=== PATIENT | male | born 1980 | race African-American/Black ===

== ENCOUNTER 2017-06-20 14:09 | Emergency (ER) | payer OTHER, MEDICAID ==
[~2017-06-20] VITALS: Ht 182.9 cm; Wt 86.2 kg
[~2017-06-20 14:09] MED LIST: ACETAMINOPHEN-1 EAC1 PO; ATIVAN0.5 MG; ATIVAN1 MG PO; BENTYL 10 MG CA10 M1 PO; CELEXA 10 MG TA10 M1; CELEXA40 MG; CLONAZEPAM 0.50.5 M1 PO; CLONAZEPAM 1 MG1 M1 PO; FLEXERIL PO; IBUPROFEN 600600 M1 PO; KLONOPIN1 MG NG; KLONOPIN1 MG PO; NAPROSYN500 MG PO; NEXIUM40 MG PO; NORCO 5-325 TA1 EAC1 PO; NORCO 5-325 TA1 EACH PO; NORFLEX100 MG PO; ONDANSETRON HCL4 M2 PO; PEPCID40 MG PO; PHENERGAN 25 MG25 M1 PO; PHENERGAN 25 MG25 M1 RECTAL; PHENERGAN 25 MG25 MG PO; PHENERGAN25 MG RE; PHENERGAN50 MG RC; POTASSIUM20 PO; PRILOSEC40 MG PO; PROMETHAZI6.25 MG/5 PO; PROMETHAZINE12.5 M1 PO; PROMS25 WY RECTAL; REGLAN 10 MG TA10 M1 PO; ROBAXIN500 MG PO; SEROQUEL XR400 M1 PO; SEROQUEL XR400 MG PO; SEROQUEL200 MG PO; SEROQUEL300 MG PO; SEROQUEL400 MG PO; XANAX 0.25 MG0.25 MG PO; XANAX 0.5 MG0.5 M1 PO; XANAX 1 MG TABLE1 MG PO; ZANTAC 150MG T150 M1 PO; ZOFRAN ODT4 MG PO; ZOFRAN4 MG PO; [UNRECOGNIZED DRUG - OTHER]
[2017-06-20] MEDS ORDERED: ONDANSETRON HCL4 M2 PO (14:25)
[2017-06-20 15:42] LABS: URINE BILIRUBIN NEGATIVE (Negative); URINE BLOOD NEGATIVE (Negative); URINE CLARITY CLEAR; URINE COLOR YELLOW; URINE GLUCOSE-RANDOM NEGATIVE (Negative); URINE KETONES NEGATIVE (Negative); URINE LEUKOCYTES-REFLEX NEGATIVE (Negative); URINE NITRITE-REFLEX NEGATIVE (Negative); URINE PROTEIN NEGATIVE (Negative)
[2017-06-20 16:03] LABS: ABSOLUTE LYMPHOCYTES 0.9 thou/uL (0.8-5.3); ABSOLUTE MONOCYTES 0.4 thou/uL (0.0-1.2); ABSOLUTE NEUTROPHILS 6.8 thou/uL (1.6-8.1); BASOPHILS 0.6 %; EOSINOPHILS 0.3 %; HEMATOCRIT 40.3 % (42.0-52.0); HEMOGLOBIN 13.1 gm/dL (14.0-18.0); LYMPHOCYTES 10.9 %; MCH 28.6 pg (26.0-34.0); MCHC 32.4 g/dL (28.0-37.0); MCV 88.5 fL (80.0-100.0); MONOCYTES 4.8 %; MPV 7.9 fl. (7.2-11.1); NUCLEATED RBCS 0 /100WBC; PLATELET COUNT* 186 thou/uL (150-400); POLYS 83.4 %; RBC 4.56 mil/uL (4.50-6.00); RDW-CV 14.3 % (10.5-14.5); WBC 8.2 thou/uL (4.0-11.0)
[2017-06-20 16:12] LABS: POTASSIUM 4.6 mmol/L (3.5-5.1)
[2017-06-20 16:16] LABS: ALBUMIN 4.3 g/dL (3.4-5.0); TOTAL BILIRUBIN 0.5 mg/dL (<0.1-1.0); TOTAL PROTEIN 8.2 g/dL (6.4-8.2)
[2017-06-20 16:41] VITALS: BP 135/86
== END 2017-06-20 16:41 | disposition home or self-care (01) ==
LOC: M.ERS 14:09
PROVIDERS: Nurse Practitioner Family
DX: R10.12 Left upper quadrant pain (principal); F41.9 Anxiety disorder, unspecified; F31.9 Bipolar disorder, unspecified; F43.10 Post-traumatic stress disorder, unspecified; I10 Essential (primary) hypertension

== ENCOUNTER 2017-06-23 13:09 | Emergency (ER) | payer OTHER, MEDICAID ==
[~2017-06-23] VITALS: Ht 182.9 cm; Wt 86.2 kg
[2017-06-23 13:28] VITALS: BP 144/95
[2017-06-23] MEDS ORDERED: ZOFRAN ODT4 MG SUBLING (13:49)
== END 2017-06-23 13:58 | disposition home or self-care (01) ==
LOC: M.ERS 13:09
DX: R11.2 Nausea with vomiting, unspecified (principal); F41.9 Anxiety disorder, unspecified; F43.10 Post-traumatic stress disorder, unspecified; F31.9 Bipolar disorder, unspecified; I10 Essential (primary) hypertension

== ENCOUNTER 2017-09-12 16:44 | Emergency (ER) | payer OTHER, MEDICAID ==
[~2017-09-12] VITALS: Ht 182.9 cm; Wt 88.5 kg
[~2017-09-12 16:44] MED LIST changes: +ZOFRAN ODT4 MG SUBLING
[2017-09-12 19:31] LABS: HEMATOCRIT 44.5 % (42.0-52.0); HEMOGLOBIN 14.6 gm/dL (14.0-18.0); MCH 28.7 pg (26.0-34.0); MCHC 32.8 g/dL (28.0-37.0); MCV 87.4 fL (80.0-100.0); MPV 8.3 fl. (7.2-11.1); NUCLEATED RBCS 0 /100WBC; PLATELET COUNT* 255 thou/uL (150-400); RBC 5.08 mil/uL (4.50-6.00); WBC 14.4 thou/uL (4.0-11.0)
[2017-09-12 19:43] LABS: CALCIUM 10.5 mg/dL (8.5-10.1); CREATININE 1.3 mg/dL (0.6-1.3); POTASSIUM 3.7 mmol/L (3.5-5.1)
[2017-09-12 19:48] LABS: ALBUMIN 5.2 g/dL (3.4-5.0); TOTAL PROTEIN 9.9 g/dL (6.4-8.2)
[2017-09-12 19:56] LABS: ABSOLUTE LYMPHOCYTES 0.7 thou/uL (0.8-5.3); ABSOLUTE MONOCYTES 0.4 thou/uL (0.0-1.2); ABSOLUTE NEUTROPHILS 13.2 thou/uL (1.6-8.1)
[2017-09-12 19:57] LABS: PLATELET ESTIMATE ADEQUATE
[2017-09-12] MEDS ORDERED: ZOFRAN4 MG PO (20:37)
[2017-09-12 21:43] VITALS: BP 114/66
== END 2017-09-12 21:43 | disposition home or self-care (01) ==
LOC: M.ERS 16:44
PROVIDERS: Nurse Practitioner Family
DX: R11.2 Nausea with vomiting, unspecified (principal); I10 Essential (primary) hypertension; F31.9 Bipolar disorder, unspecified

== ENCOUNTER 2018-01-01 15:09 | Emergency (ER) | payer OTHER, MEDICAID ==
[~2018-01-01] VITALS: Ht 182.9 cm; Wt 86.2 kg
[2018-01-01 15:17] VITALS: BP 134/84
[2018-01-01] MEDS ORDERED: QUETIAPINE FUM100 MG PO ×2 (15:21)
[2018-01-01] MEDS ORDERED: IBUPROFEN 800800 M1 PO (16:09)
== END 2018-01-01 16:19 | disposition home or self-care (01) ==
LOC: M.ERS 15:09
DX: S40.011A Contusion of right shoulder, initial encounter (principal); F41.0 Panic disorder [episodic paroxysmal anxiety]; F31.9 Bipolar disorder, unspecified; I10 Essential (primary) hypertension; V89.2XXA Person injured in unspecified motor-vehicle accident, traffic, initial encounter; Y93.89 Activity, other specified; Y92.89 Other specified places as the place of occurrence of the external cause; Y99.8 Other external cause status

== ENCOUNTER 2019-05-05 20:11 | Emergency (ER) | payer OTHER, MEDICAID ==
[~2019-05-05] VITALS: Ht 182.9 cm; Wt 90.7 kg
[~2019-05-05 20:11] MED LIST changes: +IBUPROFEN 800800 M1 PO; +QUETIAPINE FUM100 MG PO
[2019-05-05 20:18] VITALS: BP 143/98
== END 2019-05-05 20:43 | disposition home or self-care (01) ==
LOC: M.ERS 20:11
DX: K02.9 Dental caries, unspecified (principal); I10 Essential (primary) hypertension; F41.0 Panic disorder [episodic paroxysmal anxiety]; F31.9 Bipolar disorder, unspecified

== ENCOUNTER 2019-06-22 11:01 | Emergency (ER) | payer OTHER, MEDICAID ==
[~2019-06-22] VITALS: Ht 182.9 cm; Wt 90.7 kg
--- NOTE | ~2019-06-22 | EKG ---
[place] [address] ELECTROCARDIOGRAM REPORT Name: ROSALIA WILSON Room: [facility]#: [id number] Admission: 06/22/19 Attend Phys: Discharge: Date of : 80 Date of Service: 06/22/19 1405 Report #: [id number] THIS REPORT FOR: cc: FAM - No family physician/PCP FAM - No family physician/PCP Dong Umana MD ~ THIS REPORT FOR: //name// [facility] ED Test Date: 2019-06-22 Test Time: 14:05:25 Pat Name: ROSALIA BRADFORD Department: Room: Gender: M Title Specialist: JESS : 1980 Requested By: Fredy Jarrett Order Number: [id number] MD: Measurements Intervals [place] Rate: 57 P: -26 CO: 155 QRS: 39 QRSD: 97 T: 47 QT: 453 QTc: 441 Interpretive Statements Sinus rhythm Probable left ventricular hypertrophy ST elev, probable normal early repol pattern No previous ECG available for comparison [email or web address] By: 1405 1405 Epiphany Epiphany, [place] /DAWNA
[2019-06-22 12:43] LABS: HEMATOCRIT 39.7 % (42.0-52.0); HEMOGLOBIN 12.7 gm/dL (14.0-18.0); MCH 28.1 pg (26.0-34.0); MCV 87.9 fL (80.0-100.0); MPV 8.2 fl. (7.2-11.1); NUCLEATED RBCS 0 /100WBC; PLATELET COUNT* 237 thou/uL (150-400); RBC 4.52 mil/uL (4.50-6.00); RDW-CV 14.4 % (10.5-14.5); WBC 13.7 thou/uL (4.0-11.0)
[2019-06-22 12:52] LABS: CALCIUM 9.4 mg/dL (8.5-10.1); CREATININE 1.1 mg/dL (0.6-1.3); POTASSIUM 4.5 mmol/L (3.5-5.1)
[2019-06-22 13:01] LABS: ALBUMIN 4.3 g/dL (3.4-5.0); TOTAL BILIRUBIN 0.3 mg/dL (<0.1-1.0); TOTAL PROTEIN 8.2 g/dL (6.4-8.2)
[2019-06-22 13:02] LABS: ABSOLUTE LYMPHOCYTES 0.3 thou/uL (0.8-5.3); ABSOLUTE MONOCYTES 0.5 thou/uL (0.0-1.2); ABSOLUTE NEUTROPHILS 12.9 thou/uL (1.6-8.1); PLATELET ESTIMATE ADEQUATE
[2019-06-22] MEDS ORDERED: NORCO 5-325 TA1 EAC1 PO (15:02)
[2019-06-22] MEDS ORDERED: ZOFRAN ODT4 MG DISSOLVE (15:02)
[2019-06-22 15:12] VITALS: BP 129/60
== END 2019-06-22 15:15 | disposition home or self-care (01) ==
LOC: M.ERS 11:01
PROVIDERS: Emergency Medicine Emergency Medical Services
DX: K52.9 Noninfective gastroenteritis and colitis, unspecified (principal); I10 Essential (primary) hypertension

== ENCOUNTER 2019-06-24 05:25 | Emergency (ER) | payer OTHER, MEDICAID ==
[~2019-06-24] VITALS: Ht 182.9 cm; Wt 90.7 kg
--- NOTE | ~2019-06-24 | EKG ---
[place] [address] ELECTROCARDIOGRAM REPORT Name: ROSALIA WILSON Room: [facility]#: [id number] Admission: 06/24/19 Attend Phys: Discharge: 06/24/19 Date of : 80 Date of Service: 06/24/19 0536 Report #: [id number] THIS REPORT FOR: cc: LUCIEN - Sarah family physician/PCP FAM - No family physician/PCP Dong Umana MD ~ THIS REPORT FOR: //name// [facility] ED Test Date: 2019-06-24 Test Time: 05:36:04 Pat Name: ROSALIA BRADFORD Department: Room: Gender: M Closing Manager: : 1980 Requested By: Monique Pratt Order Number: [id number] MD: Measurements Intervals [place] Rate: 63 P: 0 GA: 105 QRS: 68 QRSD: 85 T: -42 QT: 424 QTc: 435 Interpretive Statements Sinus rhythm Atrial premature complex Short [place] interval Left ventricular hypertrophy Repol abnrm suggests ischemia, inferior leads No previous ECG available for comparison [email or web address] By: Epiphany Epiphany, /DAWNA
[~2019-06-24 05:25] MED LIST changes: +ZOFRAN ODT4 MG DISSOLVE
[2019-06-24 06:20] LABS: ABSOLUTE LYMPHOCYTES 1.1 thou/uL (0.8-5.3); ABSOLUTE MONOCYTES 0.6 thou/uL (0.0-1.2); ABSOLUTE NEUTROPHILS 6.3 thou/uL (1.6-8.1); BASOPHILS 0.6 %; EOSINOPHILS 0.2 %; HEMATOCRIT 39.6 % (42.0-52.0); HEMOGLOBIN 13.5 gm/dL (14.0-18.0); LYMPHOCYTES 13.8 %; MCH 29.2 pg (26.0-34.0); MCHC 34.2 g/dL (28.0-37.0); MCV 85.3 fL (80.0-100.0); MONOCYTES 7.3 %; MPV 8.2 fl. (7.2-11.1); NUCLEATED RBCS 0 /100WBC; PLATELET COUNT* 244 thou/uL (150-400); POLYS 78.1 %; RBC 4.64 mil/uL (4.50-6.00); RDW-CV 14.2 % (10.5-14.5)
[2019-06-24 06:59] LABS: CALCIUM 9.7 mg/dL (8.5-10.1); CREATININE 1.3 mg/dL (0.6-1.3); POTASSIUM 3.5 mmol/L (3.5-5.1)
[2019-06-24 07:03] LABS: ALBUMIN 4.7 g/dL (3.4-5.0); TOTAL BILIRUBIN 0.7 mg/dL (<0.1-1.0); TOTAL PROTEIN 8.5 g/dL (6.4-8.2)
[2019-06-24 07:44] VITALS: BP 110/70
== END 2019-06-24 07:44 | disposition still patient (30) ==
LOC: M.ERS 05:25
PROVIDERS: Emergency Medicine
DX: R10.13 Epigastric pain (principal); R10.32 Left lower quadrant pain; R10.31 Right lower quadrant pain; R11.2 Nausea with vomiting, unspecified; R19.7 Diarrhea, unspecified; I10 Essential (primary) hypertension

== ENCOUNTER 2019-06-26 13:39 | Emergency (ER) | payer OTHER, MEDICAID ==
[~2019-06-26] VITALS: Ht 182.9 cm; Wt 90.7 kg
[2019-06-26 14:00] VITALS: BP 153/90
== END 2019-06-26 14:14 | disposition home or self-care (01) ==
LOC: M.ERS 13:39
DX: R11.15 Cyclical vomiting syndrome unrelated to migraine (principal); I10 Essential (primary) hypertension

== ENCOUNTER 2020-11-22 03:43 | Emergency (ER) | payer OTHER, MEDICAID ==
[~2020-11-22] VITALS: Ht 182.9 cm; Wt 93.0 kg
[2020-11-22 04:39] LABS: CALCIUM 9.2 mg/dL (8.5-10.1); CREATININE 1.3 mg/dL (0.6-1.3)
[2020-11-22 04:44] LABS: ALBUMIN 4.3 g/dL (3.4-5.0); TOTAL BILIRUBIN 0.5 mg/dL (<0.1-1.0); TOTAL PROTEIN 8.7 g/dL (6.4-8.2)
[2020-11-22] MEDS ORDERED: REGLAN 10 MG TA10 MG PO (05:52)
[2020-11-22 06:11] VITALS: BP 119/59
== END 2020-11-22 06:11 | disposition home or self-care (01) ==
LOC: M.ERS 03:43
PROVIDERS: Emergency Medicine
DX: R11.2 Nausea with vomiting, unspecified (principal); R10.11 Right upper quadrant pain; R10.13 Epigastric pain; R10.32 Left lower quadrant pain; R10.31 Right lower quadrant pain; I10 Essential (primary) hypertension

== ENCOUNTER 2020-11-23 00:36 | Emergency (ER) | payer OTHER, MEDICAID ==
[~2020-11-23] VITALS: Ht 182.9 cm; Wt 93.0 kg
[~2020-11-23 00:36] MED LIST changes: +REGLAN 10 MG TA10 MG PO
[2020-11-23 04:17] LABS: ABSOLUTE LYMPHOCYTES 0.6 thou/uL (0.8-5.3); ABSOLUTE MONOCYTES 0.6 thou/uL (0.0-1.2); ABSOLUTE NEUTROPHILS 6.1 thou/uL (1.6-8.1); BASOPHILS 0.1 %; HEMATOCRIT 37.7 % (42.0-52.0); HEMOGLOBIN 12.7 gm/dL (14.0-18.0); LYMPHOCYTES 8.2 %; MCH 28.5 pg (26.0-34.0); MCHC 33.6 g/dL (28.0-37.0); MCV 84.9 fL (80.0-100.0); MONOCYTES 8.4 %; MPV 8.2 fl. (7.2-11.1); NUCLEATED RBCS 0 /100WBC; PLATELET COUNT* 210 thou/uL (150-400); POLYS 83.3 %; RBC 4.44 mil/uL (4.50-6.00); RDW-CV 14.6 % (10.5-14.5); WBC 7.3 thou/uL (4.0-11.0)
[2020-11-23 04:29] LABS: CALCIUM 8.8 mg/dL (8.5-10.1); POTASSIUM 3.2 mmol/L (3.5-5.1)
[2020-11-23 05:40] VITALS: BP 114/73
--- NOTE | 2020-11-24 11:43 | EKG ---
[place] [address] ELECTROCARDIOGRAM REPORT Name: ROSALIA WILSON SR Room: [facility]#: [id number] Admission: 11/23/20 Attend Phys: Discharge: 11/23/20 Date of : 80 Date of Service: 11/23/20 0042 Report #: [id number] THIS REPORT FOR: //name// [facility] ED Test Date: 2020-11-23 Test Time: 00:42:02 Pat Name: ROSALIA BRADFORD Department: Room: Gender: M Lending Manager: EMIR : 1980 Requested By: Monique Pratt Order Number: [id number] MD: Rhett Villalta Measurements Intervals [place] Rate: 61 P: 84 [place]: 111 QRS: 69 QRSD: 86 T: -36 QT: 424 QTc: 427 Interpretive Statements Sinus rhythm Borderline short [place] interval Left ventricular hypertrophy Nonspecific T abnormalities, inferior leads Anterior ST elevation, probably due to LVH Compared to ECG 06/24/2019 05:36:04 ST (T wave) deviation now present Accelerated junctional rhythm no longer present Electronically Signed On 11-24-2020 11:42:54 CDT by Rhett Villalta [email or web address] <ELECTRONICALLY SIGNED> By: Rhett Villalta MD, [facility] 11/24/20 1142 Rhett Villalta MD, [facility] /EPI
== END 2020-11-23 05:40 | disposition home or self-care (01) ==
LOC: M.ERS 00:36
PROVIDERS: Emergency Medicine
DX: R11.15 Cyclical vomiting syndrome unrelated to migraine (principal); I10 Essential (primary) hypertension

== ENCOUNTER 2020-11-29 21:52 | Observation (INO) | payer OTHER, MEDICAID ==
[~2020-11-29] VITALS: Ht 182.9 cm; Wt 99.8 kg
[2020-11-29 21:53] VITALS: BP 119/80
[2020-11-29 22:47] LABS: ABSOLUTE LYMPHOCYTES 0.8 thou/uL (0.8-5.3); ABSOLUTE MONOCYTES 0.6 thou/uL (0.0-1.2); ABSOLUTE NEUTROPHILS 3.4 thou/uL (1.6-8.1); BASOPHILS 0.4 %; EOSINOPHILS 0.4 %; HEMATOCRIT 38.4 % (42.0-52.0); HEMOGLOBIN 13.3 gm/dL (14.0-18.0); LYMPHOCYTES 16.8 %; MCH 28.9 pg (26.0-34.0); MCHC 34.6 g/dL (28.0-37.0); MCV 83.3 fL (80.0-100.0); MPV 7.3 fl. (7.2-11.1); NUCLEATED RBCS 0 /100WBC; PLATELET COUNT* 281 thou/uL (150-400); POLYS 69.4 %; RBC 4.61 mil/uL (4.50-6.00); RDW-CV 14.3 % (10.5-14.5); WBC 4.9 thou/uL (4.0-11.0)
[2020-11-29 22:55] LABS: CALCIUM 8.7 mg/dL (8.5-10.1)
[2020-11-29 22:59] LABS: ALBUMIN 3.6 g/dL (3.4-5.0); TOTAL BILIRUBIN 0.7 mg/dL (<0.1-1.0); TOTAL PROTEIN 8.6 g/dL (6.4-8.2)
[2020-11-30 07:10] LABS: MAGNESIUM 2.4 mg/dL (1.8-2.4); PHOSPHORUS* 1.7 mg/dL (2.5-4.9)
[2020-11-30 10:19] LABS: URINE BILIRUBIN NEGATIVE (Negative); URINE BLOOD NEGATIVE (Negative); URINE CLARITY CLEAR; URINE COLOR YELLOW; URINE GLUCOSE-RANDOM NEGATIVE (Negative); URINE KETONES NEGATIVE (Negative); URINE LEUKOCYTES-REFLEX NEGATIVE (Negative); URINE NITRITE-REFLEX NEGATIVE (Negative); URINE PROTEIN 1+ (Negative); URINE SPECIFIC GRAVITY >= 1.030 (1.005-1.030)
[2020-11-30 10:26] LABS: AMP/METHAMP Negative (Negative); BARBITURATES Negative (Negative); BENZODIAZEPINES Negative (Negative); COCAINE Negative (Negative); METHADONE Negative (Negative); OPIATES Negative (Negative); PCP Negative (Negative); THC Negative (Negative)
[2020-11-30 10:30] VITALS: BP 131/80
[2020-11-30 14:42] LABS: CALCIUM 8.9 mg/dL (8.5-10.1); CREATININE 0.9 mg/dL (0.6-1.3); POTASSIUM 3.8 mmol/L (3.5-5.1)
[2020-11-30 14:54] VITALS: BP 164/108
[2020-11-30] MEDS ORDERED: PHENERGAN 25 MG25 M1 PO (15:21)
[2020-11-30 15:34] VITALS: BP 164/108
[2020-11-30 15:45] VITALS: BP 164/108
== END 2020-11-30 15:45 | disposition home or self-care (01) ==
LOC: M.ERS 21:52 → M.TBA-ER 11-30 06:42
PROVIDERS: Internal Medicine; Nurse Practitioner Family; Personal Emergency Response Attendant; ADMIT Internal Medicine; ATTEND Internal Medicine
DX: R11.2 Nausea with vomiting, unspecified (principal); Z20.822 Contact with and (suspected) exposure to COVID-19; R10.9 Unspecified abdominal pain; E87.6 Hypokalemia; F41.9 Anxiety disorder, unspecified; F43.10 Post-traumatic stress disorder, unspecified; F31.9 Bipolar disorder, unspecified; I10 Essential (primary) hypertension; Z79.899 Other long term (current) drug therapy